=== PATIENT | male | born 1970 | race African-American/Black ===

== ENCOUNTER 2023-08-19 03:06 | Emergency (ER) | payer SELFPAY ==
[~2023-08-19] VITALS: Ht 177.8 cm; Wt 75.0 kg
[2023-08-19 03:10] VITALS: O2SAT 98
[2023-08-19] MEDS: GABAPENTIN 300MG CAPSULE PO ONE (04:15)
[2023-08-19] MEDS: LORAZEPAM 1MG TABLET PO ONE (05:30)
[2023-08-19] MEDS ORDERED: GABA300C MT (05:43)
[2023-08-19 07:30] VITALS: BP 118/77; PULSE 98; RESP 17; TEMP 98.3
== END 2023-08-19 08:41 ==
LOC: ER 03:06
DX: R51.9 Headache, unspecified (principal)
CPT/HCPCS: 99284